=== PATIENT | female | born 1960 | race Caucasian/White ===

== ENCOUNTER 2016-08-07 02:47 | Inpatient (IN) | payer MEDICAID, OTHER ==
[2016-08-07 02:47] VITALS: BMI 30.2
--- NOTE | 2016-08-07 03:25 | ED PDOC ---
Arrival/[facility] - General Chief Complaint: Medical Clearance Time Seen by Provider: 08/07/16 03:21 Historian: Patient - History of Present Illness Narrative History of Present Illness (Text): 08/07/16 03:24 Main Torres is a 56 year old female who presents to the emergency department transferred from [facility] for depression and psychiatric admission tonight. Patient was medically cleared prior to arrival at previous facility and accepted for psych admission by psychiatrist interventional radiology tech. The patient denies any suicidal ideation, fever, chills, chest pain, shortness of breath, abdominal pain, nausea, vomiting, diarrhea, urinary symptoms, back pain, neck pain, headache, dizziness, or any other complaints. Time/Duration: Other Symptom Onset: Gradual Symptom Course: Unchanged Activities at Onset: Rest, Light Context: Other (Transferrred from [facility]) Past Medical History - Provider Review Nursing Documentation Reviewed: Yes - Cardiac Hx Cardiac Disorders: No - Pulmonary Hx Respiratory Disorders: No - Neurological Hx Neurological Disorder: No - HEENT Hx HEENT Disorder: No - Renal Hx Renal Disorder: No - Endocrine/Metabolic Hx Endocrine Disorders: No - Hematological/Oncological Hx Blood Disorders: No - Integumentary Hx Dermatological Disorder: No - Musculoskeletal/Rheumatological Hx Musculoskeletal Disorders: No - Gastrointestinal Hx Gastrointestinal Disorders: Yes Hx Gastroesophageal Reflux: Yes - Genitourinary/Gynecological Hx Genitourinary Disorders: No - Psychiatric Hx Psychophysiologic Disorder: No Hx Substance Use: No - Surgical History Other/Comment: TONSILLECTOMY; LIPOSUCTION BOTH HIPS - Anesthesia Hx Anesthesia: Yes Hx Anesthesia Reactions: No Hx Malignant Hyperthermia: No Family/Social History - Physician Review Nursing Documentation Reviewed: Yes Family/Social History: No Known Family HX Smoking Status: Heavy Smoker > 10 Cigarettes Daily Hx Alcohol Use: Yes Frequency of alcohol use: Socially Hx Substance Use: No Allergies/Home Meds Allergies/Adverse Reactions: Allergies No Known Allergies Allergy (Verified 07/08/14 08:10) Home Medications: Home Meds Medication Instructions Recorded Confirmed Pill For Stomach 1 tab PO DAILY 07/08/14 07/08/14 Review of Systems - Physician Review All systems were reviewed & negative as marked: Yes - Review of Systems Constitutional: Normal. absent: Fevers Eyes: Normal ENT: Normal Respiratory: Normal. absent: SOB, Cough Cardiovascular: Normal. absent: Chest Pain Gastrointestinal: Normal. absent: Abdominal Pain, Diarrhea, Nausea, Vomiting Genitourinary Female: Normal. absent: Dysuria, Frequency, Hematuria, Urine Output Changes Musculoskeletal: Normal. absent: Back Pain, Neck Pain Skin: Normal. absent: Rash Neurological: Normal. absent: Headache, Dizziness Endocrine: Normal Hemo/Lymphatic: Normal Psychiatric: Depression. absent: Suicidal Ideation Physical Exam Vital Signs Reviewed: Yes Vital Signs Temp Pulse Resp BP Pulse Ox 08/07/16 02:56 98.2 F 68 18 116/64 95 Temperature: Afebrile Blood Pressure: Normal Pulse: Regular Respiratory Rate: Normal Appearance: Positive for: Well-Appearing, Non-Toxic, Comfortable Pain Distress: None Mental Status: Positive for: Alert and Oriented X 3 - Systems Exam Head: Present: Atraumatic, Normocephalic Pupils: Present: PERRL Extroacular Muscles: Present: EOMI Conjunctiva: Present: Normal Mouth: Present: Moist Mucous Membranes Neck: Present: Normal Range of Motion Respiratory/Chest: Present: Clear to Auscultation, Good Air Exchange. No: Respiratory Distress, Accessory Muscle Use Cardiovascular: Present: Regular Rate and Rhythm, Normal S1, S2. No: Murmurs Abdomen: Present: Normal Bowel Sounds. No: Tenderness, Distention, Peritoneal Signs Back: Present: Normal Inspection Upper Extremity: Present: Normal Inspection. No: Cyanosis, Edema Lower Extremity: Present: Normal Inspection. No: Edema Neurological: Present: GCS=15, CN II-XII Intact, Speech Normal Skin: Present: Warm, Dry, Normal Color. No: Rashes Psychiatric: Present: Alert, Oriented x 3, Normal Insight, Normal Concentration Medical Decision Making ED Course and Treatment: 08/07/16 03:25 Impression: 56 year old female transferred from [facility] for depression and psych admission. Differential Diagnosis included but are not limited to: depression Progress Notes: Pt medically cleared at previous facility and accepted for psychiatric admission by Dr. Durham. Pt will be admitted to Behavioral [facility] for depression under Dr. Colmenares's service. Pt agreeable with plan. - Scribe Statement The provider has reviewed the documentation as recorded by the Angela Resendiz Provider Attestation: All medical record entries made by the Scribe were at my direction and personally dictated by me. I have reviewed the chart and agree that the record accurately reflects my personal performance of the history, physical exam, medical decision making, and the department course for this patient. I have also personally directed, reviewed, and agree with the discharge instructions and disposition. Disposition/Present on Arrival - Present on Arrival Any Indicators Present on Arrival: No History of DVT/PE: No History of Uncontrolled Diabetes: No Urinary Catheter: No History of Decub. Ulcer: No History Surgical Site Infection Following: None - Disposition Have Diagnosis and Disposition been Completed?: Yes Diagnosis: Depression Disposition: HOSPITALIZED Disposition Time: 03:35 Patient Plan: Admission Condition: STABLE
[2016-08-07 06:41] VITALS: O2SAT 100
--- NOTE | 2016-08-07 07:53 | CP.PCM.HP ---
<Carolyne Bansal - Last Filed: 08/07/16 07:50> History of Present Illness - History of Present Illness History of Present Illness: This is a 56Y F with PMH anxiety, depression and GERD who came to ED for psych transfer from [place]. She reports feeling very anxious and depressed because of her housing situation. She has generalized body pain, but otherwise reports feeling well. She denies CP, SOB, n/v/d, numbness/tingling. PMH: GERD PSH: Tonsillectomy, liposuction of hips Home meds: Denies All: NKDA SH: Smokes 1ppd x 20yr, denies alcohol or drug use. She lives in [place] [address], but reports is being kicked out FH: Denies PMD: Dr. Cottrell Present on Admission - Present on Admission Any Indicators Present on Admission: No Review of Systems - Review of Systems Review of Systems: As per HPI Past Patient History - Past Medical History & Family History Past Medical History?: No - Past Social History Smoking Status: Heavy Smoker > 10 Cigarettes Daily Alcohol: None Drugs: Denies Home Situation {Lives}: With Family - CARDIAC Hx Cardiac Disorders: No - PULMONARY Hx Respiratory Disorders: No - NEUROLOGICAL Hx Neurological Disorder: No - HEENT Hx HEENT Problems: No - RENAL Hx Chronic Kidney Disease: No - ENDOCRINE/METABOLIC Hx Endocrine Disorders: No - HEMATOLOGICAL/ONCOLOGICAL Hx Blood Disorders: No - INTEGUMENTARY Hx Dermatological Problems: No - MUSCULOSKELETAL/RHEUMATOLOGICAL Hx Musculoskeletal Disorders: No - GASTROINTESTINAL Hx Gastrointestinal Disorders: Yes Hx Gastroesophageal Reflux: Yes - GENITOURINARY/GYNECOLOGICAL Hx Genitourinary Disorders: No - PSYCHIATRIC Hx Substance Use: No - SURGICAL HISTORY Other/Comment: TONSILLECTOMY; LIPOSUCTION BOTH HIPS - ANESTHESIA Hx Anesthesia: Yes Hx Anesthesia Reactions: No Hx Malignant Hyperthermia: No Meds Allergies/Adverse Reactions: Allergies Allergy/AdvReac Type Severity Reaction Status Date / Time No Known Allergies Allergy Verified 08/07/16 05:40 Physical Exam - Constitutional Appears: No Acute Distress - Head Exam Head Exam: ATRAUMATIC, NORMAL INSPECTION, NORMOCEPHALIC - Eye Exam Eye Exam: Normal appearance, PERRL Pupil Exam: NORMAL ACCOMODATION - ENT Exam ENT Exam: Mucous Membranes Moist - Neck Exam Neck exam: Positive for: Normal Inspection - Respiratory Exam Respiratory Exam: Clear to Auscultation Bilateral, NORMAL BREATHING PATTERN. absent: Rales, Rhonchi, Respiratory Distress - Cardiovascular Exam Cardiovascular Exam: REGULAR RHYTHM, +S1, +S2. absent: Gallop, Rubs, Systolic Murmur - GI/Abdominal Exam GI & Abdominal Exam: Normal Bowel Sounds, Soft. absent: Mass, Rebound, Rigid, Tenderness - Extremities Exam Extremities exam: Positive for: normal inspection. Negative for: calf tenderness, pedal edema - Neurological Exam Neurological exam: Alert, CN II-XII Intact, Oriented x3 - Psychiatric Exam Psychiatric exam: Flat Affect, Normal Mood - Skin Skin Exam: Dry, Intact, Normal Color, Warm Results - Vital Signs Recent Vital Signs: Last Vital Signs Temp 97.8 F 08/07/16 07:39 Pulse 78 08/07/16 07:39 Resp 20 08/07/16 07:39 BP 121/74 08/07/16 07:39 Pulse Ox 100 08/07/16 04:55 Assessment & Plan - Assessment and Plan (Free Text) Assessment: This is a 56Y F with PMH of GERD admitted for anxiety and depression. Plan: 1. Tobacco abuse - Will start nicotine patch - counseled on smoking cessation 2. Hx of GERD - will start protonix - Tylenol prn pain 3. Depression - Psych meds as per psych GI ppx: Protonix DVT ppx: Pt Ambulating Case seen, discussed and reviewed with attending. Thank you for this consult. Please re-consult as needed. Fernie Bansal PGY1 - Date & Time Date: 08/07/16 Time: 07:56 <Trace Yanez - Last Filed: 08/07/16 17:00> Results - Vital Signs Recent Vital Signs: Last Vital Signs Temp 97.8 F 08/07/16 07:39 Pulse 78 08/07/16 07:39 Resp 20 08/07/16 07:39 BP 121/74 08/07/16 07:39 Pulse Ox 100 08/07/16 04:55 - Labs Labs: Laboratory Results - last 24 hr 08/07/16 09:06 Triglycerides 83 Cholesterol 198 LDL Cholesterol Direct 88 HDL Cholesterol 71 H Attending/Attestation - Attestation I have personally seen and examined this patient.: Yes I have fully participated in the care of the patient.: Yes I have reviewed all pertinent clinical information: Yes Notes (Text): 08/07/16 13:31 Attending note; Patient seen and examined with resident. Patient is alert, awake and oriented. Complaining of depression. Patient is a 56-year-old female with a past medical history of GERD, smoking is admitted with depression. Patient was transferred from [facility]. Labs reviewed. Mildly elevated blood sugar level. Advised carbohydrate consistent diet. Active smoking; smoking cessation is strongly advised. Started on NicoDerm patch. History of gastritis; on protonix. Continue medications per psychiatrist. Patient is clinically stable. Please reconsult as needed. Thank you for the courtesy of this consultation.
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
[2016-08-07 09:19] LABS: CHOLESTEROL 198 mg/dL (130-200)
[2016-08-08] MEDS: Pantoprazole 40 mg EC Tab PO SCH (08:56)
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
[2016-08-09] MEDS: Pantoprazole 40 mg EC Tab PO SCH (08:45)
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
[2016-08-09] MEDS: [UNRECOGNIZED DRUG - OTHER] PO SCH (17:11)
[2016-08-10] MEDS: [UNRECOGNIZED DRUG - OTHER] PO SCH (09:16)
[2016-08-10] MEDS: Pantoprazole 40 mg EC Tab PO SCH (09:16)
--- NOTE | 2016-08-10 13:15 | PCM.PYCHPN ---
Psychiatric Progress Note - Psychiatric Progress Note Patient seen today, length of contact: 30min Patient Chief Complaint: "I do not like that medication, I feel like zombie..." Problems Identified/Issues Discussed: Suicide/ homicide prevention, past psychiatric h/o, current psychiatric symptoms , medical problems, risk/benefits and alternatives of medications, medications compliance, coping strategies, substance abuse h/o, relapse prevention, importance of follow up with psychiatrist and therapist, discharge plan. Medical Problems: pt said that she is healthy pt was seen by medical team. Diagnostic Results: Lab Results 08/07/16 09:06: Hemoglobin A1c 5.6 08/07/16 09:06: Triglycerides 83, Cholesterol 198, LDL Cholesterol Direct 88, HDL Cholesterol 71 H Vital Signs Temp Pulse Resp BP Pulse Ox 08/08/16 07:24 97.9 F 67 20 110/74 08/07/16 21:10 138/80 08/07/16 07:39 97.8 F 78 20 121/74 08/07/16 05:46 18 08/07/16 04:55 97.8 F 75 20 129/84 100 08/07/16 02:56 98.2 F 68 18 116/64 95 Temp Pulse Resp BP Pulse Ox 97.9 F 57 L 20 98/58 L 100 08/10/16 07:21 08/10/16 07:21 08/10/16 07:21 08/10/16 07:21 08/07/16 04:55 DSM 5 Symptoms Update: Patient is a 56-year-old female with history of depression and anxiety, one remote hospitalization x15 years ago, 2-3 prior suicide attempts, reportedly in treatment with the psychiatrist at [facility] but not compliant with medications Who was transferred from [facility] after she presented there with her cousin complaining of symptoms of depression and suicidal thoughts. Pt was accepted by Dr. Michaels over this weekend, patient needs further evaluation and stabilization, medication initiation and titration. atient was seen and examined today at the morning time at the treatment team meeting room together with the director social service. Patient presented to have acceptable personal hygiene, wears black clothing good ADLs. pt said that she feels like "a zombie today", pt said that she did not like seroquel, asked it to be d/c, pt also asked to d/c klonopin. as per staff pt is visible, family involved. pt said that he cousin is arranging pt's moving out from her section 8appt. pt tolerates meds well, no side effects observed or reported, AIMS 0, no EPS. as per staff pt is visible in the unit, but anxious, at times intrusive. Impression: MDD severe with psychosis PTSD CHANNING Medication Change: Yes (seroquel d/c, klonopin decreased) Medical Record Reviewed: Yes (transfer papers from the [facility] ) Consults ordered or reviewed: medical consult appreciated Mental Status Examination - Cognitive Function Orientation: Person, Place, Situation Memory: Intact Attention: Poor Concentration: Poor Association: Loose Fund of Knowledge: WNL - Mood Mood: Depressed, Anxious - Affect Affect: Constricted - Formal Thought Process Formal Thought Process: No Impairment, Hallucinations ("I do not have hallucinaitons") - Suicidal Ideation Suicidal Ideation: No - Homicidal Ideation Homicidal Ideation: No Goal/Treatment Plan - Goal/Treatment Plan Need for Continued Stay: Remain at risks for inpatient hospitalization, Severe depression anxiety, Discharge may exacerbated symptoms, Severe functional impairment Progress Toward Problem(s) and Goals/Treatment Plan: Milieu/ structure, supportive therapy Paxil 20 mg at the nighttime for depression and anxiety Klonopin 0.5 mg twice a day, prn sonata 5 mg of the nighttime as needed for insomnia Seroquel 50 will be d/c as per pt's request. Social work evaluation Family involvement Patient was seen by medical team consult appreciated We'll monitor closely Estimated Date of D/C: 08/15/16 (will monitor closely)
[2016-08-11] MEDS: Pantoprazole 40 mg EC Tab PO SCH (08:57)
[2016-08-11] MEDS: [UNRECOGNIZED DRUG - OTHER] PO SCH (08:59)
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
[2016-08-12 09:47] VITALS: RESP 16; TEMP 98.3
[2016-08-12] MEDS: [UNRECOGNIZED DRUG - OTHER] PO SCH (09:51)
[2016-08-12] MEDS: Pantoprazole 40 mg EC Tab PO SCH (09:52)
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
[2016-08-12 16:31] VITALS: BP 143/82; PULSE 62
== END 2016-08-12 17:50 | disposition home or self-care (01) | DRG 430 ==
LOC: ED 02:47 → ERH 03:35 → PSYC 04:00
PROVIDERS: ADMIT Psychiatry & Neurology Psychiatry; ATTEND Psychiatry & Neurology Psychiatry
PROC: GZ3ZZZZ Medication Management (ICD-10-PCS; principal; 2016-08-07)
DX: F32.3 Major depressive disorder, single episode, severe with psychotic features (principal); Z91.14 Patient's other noncompliance with medication regimen; F41.1 Generalized anxiety disorder; F17.210 Nicotine dependence, cigarettes, uncomplicated; K21.9 Gastro-esophageal reflux disease without esophagitis; K29.70 Gastritis, unspecified, without bleeding; F43.10 Post-traumatic stress disorder, unspecified; G47.00 Insomnia, unspecified; Z91.5 Personal history of self-harm